=== PATIENT | male | born 1990 | race Caucasian/White ===

== ENCOUNTER 2017-11-23 19:30 | Inpatient (IN) ==
[2017-11-23] MEDS ORDERED: Tetanus/Diphtheria Toxoid Adult Vaccine Inj 0.5 ML Vial IM ONE (20:06)
--- NOTE | 2017-11-23 20:06 | ED ---
HPI General Chief Complaint: Extremity Injury, Lower Stated Complaint: Left ankle injury Time Seen by Provider: 11/23/17 19:49 Source: patient and EMS Mode of arrival: EMS Limitations: no limitations History of Present Illness HPI Narrative: 27-year-old white male presents emergency department by EMS with complaints of left ankle pain. Patient had his left ankle rolled up on by a pallet steve. He states that he inverted his ankle significantly. Patient states that he did not hear or feel a crack or pop. He has had significant discomfort since injury. He was given 4 mg of morphine IV by EMS. Pain currently is mild. Worse with weightbearing. No alleviating factors other than morphine. Patient denies any numbness, tingling. No neck or back injury. No pain in the foot, knee or hip. Related Data Previous Rx's Medication Instructions Recorded oxycodone-acetaminophen [Percocet] 1 tab PO Q6H #12 tab 11/23/17 Allergies Allergy/AdvReac Type Severity Reaction Status Date / Time No Known Allergies Allergy Unverified 11/23/17 19:56 Review of Systems ROS: all other systems reviewed are negative [facility] Medical History Medical History Patient denies medical problems (Acute) Surgical History Surgical History No history of previous surgery (Acute) Social History Social History Substance History: Active Abuse Smoking Status: Current every day smoker Tobacco Type: Cigarettes How Often Do You Have a Drink Containing Alcohol: Monthly or less Recent Travel in [facility] within the Last 8 Weeks: No Recent Out of Country Travel within the Last 8 Weeks: No Substance Abuse Detail Marijuana: Substance Use Status: Active Immunization History Tetanus Immunization: Unsure Hx Influenza Vaccine This Season: No Exam Narrative Exam Narrative: GENERAL: Well-developed, well-nourished in no apparent distress. Nontoxic appearing. HEAD: Normocephalic, atraumatic. EYES: Pupils equal round and reactive. Extraocular motions intact. No scleral icterus. No injection or drainage. ENT: Nose clear. Throat without erythema, tonsillar hypertrophy or exudate. Uvula midline. Airway patent. NECK: Trachea midline. Supple, nontender, moves head freely. No central bony tenderness or spasm. CARDIOVASCULAR: Regular rate and rhythm without murmurs, gallops, or rubs. RESPIRATORY: Clear to auscultation. Breath sounds equal bilaterally. No wheezes , rales, or rhonchi. GASTROINTESTINAL: Abdomen soft, non-tender, nondistended. No hepato-splenomegaly , or palpable masses. No guarding. EXTREMITIES: Examination of the left lower extremity reveals a splint in place which has been removed. He has significant swelling of both the medial lateral aspects of the ankle with overlying superficial abrasions both medially and laterally but there is no penetrating laceration. Patient complains of pain on both the medial lateral components of the ankle. No gross instability. No pain in the heel, Achilles, forefoot or toes. No pain in the knee. No pain over the proximal fibula. No pain in the hip. The right lower extremity as well as upper extremities are unremarkable for acute bony tenderness or deformity. Neurovascular intact. BACK: Nontender without deformity. No flank tenderness. NEUROLOGICAL: Awake, alert and oriented x 3 .Cranial nerves grossly intact. Motor and sensory grossly within normal limits. Normal speech. Course Initial Documented Vital Signs Temperature 99.6 F 11/23/17 19:46 Pulse Rate 63 11/23/17 19:46 Respiratory Rate 17 11/23/17 19:46 Blood Pressure 121/85 11/23/17 19:46 Pulse Oximetry 98 11/23/17 19:46 Last Documented Vital Signs Temperature 99.6 F 11/23/17 19:46 Pulse Rate 63 11/23/17 19:46 Respiratory Rate 17 11/23/17 19:46 Blood Pressure 121/85 11/23/17 19:46 Pulse Oximetry 98 11/23/17 19:46 Medical Decision Making MDM Narrative Medical decision making narrative: Will obtain x-ray of the left ankle. Tetanus immunization. Ice pack. X-ray reveals a medial malleolar fracture. Patient is placed in a posterior sugar tong splint and given crutches. The case has been discussed with Dr. 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 Case has been discussed with Dr. Louis who is accepted the admission. Medical Screen Exam Complete: Yes Emergency Medical Condition: Yes Differential Diagnosis Differential Diagnosis: MDM: High Differential diagnoses: Fracture, sprain, strain, dislocation, contusion, neurovascular injury Imaging Data Radiologist's impression: Ankle X-Ray 11/23/17 19:50 CONCLUSION: 1. Severe medial and lateral soft tissue swelling. 2. Minimally displaced fracture of the medial malleolus. 3. Intact distal fibula. Discharge Plan Discharge Disposition Patient Disposition: 30 Still Patient Discharge Condition Condition: Stable Discharge Order Discharge Orders: Discharge Order (Routine); Ordered 11/23/17 Ordered By: Thompson Angela Discharge Details Anticipated Discharge Date: 11/23/17 Diagnosis: Ankle fracture Physicians Team ED Provider: Shahzad Savage ED Midlevel Provider: Thompson Angela Primary Care Provider: Lacho Sandra V Attending Provider: Marylu Louis Status ED Status: Admitted Patient
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
[2017-11-23] MEDS ORDERED: Bisacodyl 10 MG Supp RECTAL PRN (21:28)
[2017-11-23] MEDS ORDERED: Acetaminophen 325 MG Tablet PO PRN (21:28)
[2017-11-23] MEDS ORDERED: Sodium Chloride 0.9% 2 ML Flush PRN IV.FLUSH (21:34)
--- NOTE | 2017-11-23 21:36 | CT ---
EXAM DATE: 11/23/2017 9:11 PM EDT AGE/SEX: 27 years / Male INDICATIONS: Fracture. CLINICAL DATA: This is the patient's initial encounter. Patient reports that signs and symptoms have been present for 1 day and indicates a pain score of 6/10. MEDICAL/SURGICAL HISTORY: None. None. RADIATION DOSE: 7.29 CTDI (mGy) COMPARISON: No prior exams available for comparison. TECHNIQUE: Multiple contiguous axial images were acquired using a multirow detector CT scanner witho ut contrast. Multiplanar reconstruction was performed in the sagittal and coronal planes. Using aut omated exposure control and adjustment of the mA and/or kV according to patient size, radiation dose was kept as low as reasonably achievable to obtain optimal diagnostic quality images. DICOM format i mage data is available electronically for review and comparison. FINDINGS: A fracture of the medial malleolus is again noted. The CT shows that the fracture is actually severel y comminuted. There is slight depression of some of the comminuted fracture fragments which results i n some step-off of the articular surface of the 2.3 mm, for example series 601 image 37. The larger f racture fragments are minimally displaced. Laterally, there is a sliver-like avulsion fracture fragment of the talus which involves the distal a ttachment of the anterior talofibular ligament no fibular fracture is demonstrated. No subluxation. The calcaneus is intact. CONCLUSION: 1. Comminuted fracture of the medial malleolus with mild depression of some of the small comminuted fracture fragments but otherwise minimally displaced. 2. Sprain with tiny distal avulsion fracture fragment of the anterior talofibular ligament. 3. No subluxations. Electronically signed by: Neptali Ramon MD 11/23/2017 9:35 PM EDT
[2017-11-23] MEDS: Morphine Inj 4 MG/ML Vial IV.PUSH PRN (21:39)
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
[2017-11-23] MEDS ORDERED: Chlorhexidine Gluconate 2% 1 Pack (2 Cloths) TOPICAL ONE (22:29)
[2017-11-23] MEDS ORDERED: Sodium Chlor 0.9% Inj 500 ML IV.SIG SCH (23:00)
[2017-11-23 23:03] LABS: Baso # (Auto) 0.1 th/mm3 (0.0-0.2); Baso % (Auto) 1.3 % (0.0-2.0); Eos # (Auto) 0.5 th/mm3 (0.0-0.4); Eos % (Auto) 5.3 % (0.0-4.0); Hematocrit 32.6 % (39.0-51.0); Hemoglobin 11.5 gm/dL (13.0-17.0); Lymph # (Auto) 2.7 th/mm3 (1.0-4.8); Lymph % (Auto) 26.8 % (9.0-44.0); Mean Corpuscular HGB Conc 35.4 % (32.0-36.0); Mean Corpuscular Hemoglobin 30.5 pg (27.0-34.0); Mean Corpuscular Volume 86.2 fL (80.0-100.0); Mean Platelet Volume 7.4 fL (7.0-11.0); Mono # (Auto) 0.8 th/mm3 (0.0-0.9); Mono % (Auto) 8.5 % (0.0-8.0); Neut # (Auto) 5.8 th/mm3 (1.8-7.7); Neut % (Auto) 58.1 % (16.0-70.0); Platelet Count 198 th/mm3 (150-450); Red Blood Count 3.79 mil/mm3 (4.50-5.90); Red Cell Distribution Width 12.6 % (11.6-17.2)
[2017-11-23 23:15] LABS: Activated Partial Thrombo Time 25.9 sec (24.3-30.1); Prothrombin Time 10.1 sec (9.8-11.6)
[2017-11-23 23:16] LABS: Anion Gap 11 meq/L (5-15); Blood Urea Nitrogen 11 mg/dL (7-18); Calcium 8.2 mg/dL (8.5-10.1); Carbon Dioxide 27.5 meq/L (21.0-32.0); Chloride 106 meq/L (98-107); Glomerular Filtration Rate Greater Than 89 mL/min (>89); Glucose,Random 95 mg/dL (74-106); Potassium 3.7 meq/L (3.5-5.1); Sodium 144 meq/L (136-145)
[2017-11-23] MEDS: Sod Chloride 0.9% Inj 1,000 ML IV.CONT SCH (23:34)
[2017-11-24 01:22] LABS: Eosinophils 5 % (0-4); Lymphocytes 19 % (9-44); Metamyelocytes 1 % (0-1); Monocytes 8 % (0-8); Myelocytes 1 % (0-0); Platelet Estimate Normal (Normal)
[2017-11-24 01:23] LABS: Platelet Morphology Normal (Normal); RBC Morphology Normal (Normal)
[2017-11-24] MEDS: Morphine Inj 4 MG/ML Vial IV.PUSH PRN ×5 (02:05→22:19)
[2017-11-24] MEDS: Sod Chloride 0.9% Inj 1,000 ML IV.CONT SCH ×3 (06:20→22:32)
[2017-11-24 07:58] LABS: Baso % (Auto) 0.4 % (0.0-2.0); Eos # (Auto) 0.1 th/mm3 (0.0-0.4); Eos % (Auto) 1.3 % (0.0-4.0); Hematocrit 42.1 % (39.0-51.0); Hemoglobin 14.3 gm/dL (13.0-17.0); Lymph # (Auto) 2.4 th/mm3 (1.0-4.8); Lymph % (Auto) 22.1 % (9.0-44.0); Mean Corpuscular HGB Conc 33.9 % (32.0-36.0); Mean Corpuscular Hemoglobin 32.5 pg (27.0-34.0); Mean Corpuscular Volume 95.9 fL (80.0-100.0); Mean Platelet Volume 8.5 fL (7.0-11.0); Mono # (Auto) 1.1 th/mm3 (0.0-0.9); Mono % (Auto) 9.9 % (0.0-8.0); Neut # (Auto) 7.2 th/mm3 (1.8-7.7); Neut % (Auto) 66.3 % (16.0-70.0); Platelet Count 176 th/mm3 (150-450); Red Blood Count 4.39 mil/mm3 (4.50-5.90); Red Cell Distribution Width 13.5 % (11.6-17.2); White Blood Count 10.9 th/mm3 (4.0-11.0)
[2017-11-24 08:15] LABS: Anion Gap 8 meq/L (5-15); Calcium 8.4 mg/dL (8.5-10.1); Carbon Dioxide 26.5 meq/L (21.0-32.0); Chloride 108 meq/L (98-107); Glomerular Filtration Rate Greater Than 89 mL/min (>89); Glucose,Random 83 mg/dL (74-106); Potassium 3.8 meq/L (3.5-5.1); Sodium 142 meq/L (136-145)
[2017-11-24 08:21] LABS: Blood Urea Nitrogen 11 mg/dL (7-18)
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
[2017-11-24] MEDS ORDERED: Influenza (Quadrivalent) Vaccine 0.5 ML Syringe IM ONE (09:00)
[2017-11-24] MEDS: Sodium Chloride 0.9% 2 ML Flush BID IV.FLUSH SCH ×2 (10:22→20:31)
[2017-11-24] MEDS ORDERED: Bupivacaine PF 0.5% Inj 30 ML Vial ONE (12:30)
[2017-11-24] MEDS ORDERED: Lidocaine PF 1% Inj 5 ML Syringe OTHER ONE (13:11)
--- NOTE | 2017-11-24 13:21 | P.CON ---
History of Present Illness Service: Foot and ankle surgery/podiatry Consult date: 11/24/17 Reason for Consult: Left ankle fracture Primary Care Provider: Lacho Sandra MD Chief Complaint: Left ankle pain History of Present Illness: Foot and ankle surgery/podiatry consulted for this 27-year-old he states there was obvious significant deformity but he did not feel a crack or a pop. male who presented to the emergency department last night with complaints of left ankle pain. Patient states he rolled his left ankle on a pallet steve. He reports significant pain since injury and was given 4 mg of morphine IV by EMS. Pain is well controlled with current pain medication regimen. Patient denies any numbness tingling burning to the left lower extremity. Review of Systems Constitutional: Denies chills, Denies fever(s), Denies headache(s), Denies night sweats Cardiovascular: Denies chest pain Respiratory: Denies cough Musculoskeletal: Reports joint pain Comments: Left ankle pain reported PMFSH - History History Provided By: Patient - Medical History Medical History: Medical History (Last Reviewed 11/24/17 @ 13:19 by Loyda Land DPM) History of broken nose Patient denies medical problems - Surgical History Surgical History: Surgical History (Last Reviewed 11/24/17 @ 13:19 by Loyda Land DPM) No history of previous surgery - Family History Family History: Family History (Last Reviewed 11/24/17 @ 13:19 by Loyda Land DPM) Other Coronary artery disease Diabetes mellitus - Tobacco History Second Hand Smoke Exposure: No Tobacco Use In Past 30 Days: Yes Smoking Status: Current every day smoker Tobacco Type: Cigarettes - Alcohol History How Often Do You Have a Drink Containing Alcohol: Monthly or less - Substance Use History Substance History: Active Abuse - Substance Use Type Marijuana Type: marijuana Status: Active Route Used: Inhalation Last Used: 11/22/2017 Reason for Use: Calm Down - Travel History Recent Travel in the [place] Within the Last 8 Weeks: No Recent Travel Out of the Country Within the Last 8 Weeks: No - Immunization History Tetanus Immunization: Unsure Hx Influenza Vaccine This Season: No Medications and Allergies Active Medications: Active Medications Acetaminophen (Tylenol) 650 mg PO Q4H PRN PRN Reason: Temp > 100.4 Bisacodyl (Dulcolax Supp) 10 mg RECTAL DAILY PRN PRN Reason: SEVERE CONSITIPATION Sodium Chloride (Ns Inj) 1,000 mls @ 125 mls/hr IV.CONT .Q8H [facility] Last Infusion: 11/24/17 07:34 Dose: Infused Lactated Ringer's (Lr 1000 Ml Inj) 1,000 mls @ 30 mls/hr IV.SIG .Q24H [facility] Stop: 11/24/17 22:29 Sodium Chloride (Ns Inj) 500 mls @ 30 mls/hr IV.SIG .Q10H [facility] Last Admin: 11/23/17 23:35 Dose: Not Given Morphine Sulfate (Morphine Inj) 4 mg IV.PUSH Q4H PRN PRN Reason: pain > 4 Last Admin: 11/24/17 09:55 Dose: 4 mg Ondansetron HCl (Zofran Inj) 4 mg IV.PUSH Q6H PRN PRN Reason: NAUSEA OR VOMITING Sennosides (Senokot) 17.2 mg PO Q12H PRN PRN Reason: Moderate Constipation Sodium Chloride (Ns Flush) 2 ml IV.FLUSH BID [facility] Last Admin: 11/24/17 10:22 Dose: 2 ml Sodium Chloride (Ns Flush) 2 ml IV.FLUSH PRN PRN PRN Reason: FLUSH AFTER USING IV ACCESS Allergies Allergy/AdvReac Type Severity Reaction Status Date / Time No Known Allergies Allergy Unverified 11/23/17 19:56 Physical Exam Vital signs: Vital Signs 11/23/17 19:46 11/23/17 21:37 11/23/17 22:12 Temperature 99.6 F 97.3 F L Pulse Rate 63 72 62 Respiratory Rate 17 16 17 Blood Pressure 121/85 137/80 110/53 L Pulse Oximetry 98 98 99 11/24/17 00:00 11/24/17 03:16 11/24/17 03:34 Temperature 98.0 F 98.4 F Pulse Rate 67 64 Respiratory Rate 18 16 18 Blood Pressure 137/95 H 121/64 Pulse Oximetry 97 97 11/24/17 06:29 11/24/17 08:00 11/24/17 12:00 Temperature 98.3 F 97.9 F Pulse Rate 62 52 L Respiratory Rate 16 20 20 Blood Pressure 121/58 L 130/61 Pulse Oximetry 97 97 Intake & Output 11/23/17 11/24/1718 18:59 06:59 18:59 Intake Total 480 / 480 1000 / 1000 Balance 480 / 480 1000 / 1000 Weight 93.4 kg Intake: IV 1000 / 1000 NS Inj 1,000 ML @ 125 mls/hr IV 1000 / 1000 .CONT .Q8H [facility] Rx#:[id number] Oral 480 / 480 Other: # Voids 0 Date of Last Bowel Movement 11/23/17 11/23/17 # Bowel Movements 0 Narrative: GENERAL: This is a well-nourished, well-developed patient, in no apparent distress. SKIN: Intact with superficial abrasions noted to medial lateral ankle HEAD: Atraumatic. EYES: Pupils equal round and reactive. ENT: Airway patent. NECK: Trachea midline. RESPIRATORY: Nonlabored breathing. MUSCULOSKELETAL:. Negative Homans sign bilaterally. NEUROLOGICAL: Awake and alert. Normal speech. Lower extremity physical exam: Vascular: Dorsalis pedis 2/4, posterior tibial 2/4. Capillary refill time within normal limits to digits X5 bilateral foot. Edema mildly present to left ankle Neuro: Gross sensation intact to bilateral lower extremity. Pinpoint sensation intact. No hyperalgesia noted to bilateral lower extremity Dermatology: Normal temperature and turgor to bilateral lower extremity. Superficial abrasion noted to medial ankle not an area of planned incision. Musculoskeletal: Tender to palpation to medial lateral left ankle. Assessment and Plan - Plan 27-year-old male status post left ankle fracture X-rays and CT reviewed Patient 2 OR for open reduction internal fixation of left ankle fracture She has been n.p.o. after midnight Left lower extremity marked Patient evaluated with family present Patient and family understand all risks benefits alternatives and complications associated with surgical intervention He will remain nonweightbearing to the left lower extremity
[2017-11-24] MEDS ORDERED: Bupivacaine PF 0.25% Inj 30 ML Vial ONE (13:38)
--- NOTE | 2017-11-24 15:21 | XR ---
EXAM DATE: 11/24/2017 12:00 AM EDT AGE/SEX: 27 years / Male INDICATIONS: ORIF left ankle fracture. CLINICAL DATA: This is the patient's subsequent encounter. Patient reports that signs and symptoms h ave been present for 2 days and indicates a pain score of Nonresponsive. MEDICAL/SURGICAL HISTORY: Non-responsive. Non-responsive. COMPARISON: C, ANKLE COMPLETE LEFT MIN 3V, 11/23/2017. . FINDINGS: Multiple coned-down views of the left ankle were obtained and demonstrate interval placement of a lag -type screw transfixing the medial malleolar fracture. There is a screw plate fixation device noted i n this region as well. The fracture fragments are in anatomic alignment. The ankle mortise is congrue nt. There is soft tissue swelling. CONCLUSION: Status post open rigid internal fixation. Electronically signed by: Rickey Barr MD 11/24/2017 3:20 PM EDT
--- NOTE | 2017-11-24 15:32 | P.PCN ---
Date of procedure: 11/24/17 Pre-op diagnosis: Left ankle fracture - medial malleolus Post-op diagnosis: same Procedure: Left ankle open reduction internal fixation Anesthesia: GETA Surgeon: Loyda Land Estimated blood loss (mL): 10 Pathology: none sent Condition: stable Disposition: PACU (with VSS and NVS intact)
[2017-11-24] MEDS ORDERED: fentaNYL Citrate Inj 100 MCG/2 ML Ampul ONE (15:33)
[2017-11-24] MEDS ORDERED: *Meperidine Inj 25 MG/ML Vial PERIprocedural Use ONLY ONE (15:34)
[2017-11-24] MEDS ORDERED: Post-op Orders (for Pharmacy) OTHER STA (15:34)
[2017-11-25] MEDS: Sod Chloride 0.9% Inj 1,000 ML IV.CONT SCH ×2 (03:15→06:06)
[2017-11-25] MEDS: Morphine Inj 4 MG/ML Vial IV.PUSH PRN ×3 (03:15→12:00)
--- NOTE | 2017-11-25 08:55 | P.DCO ---
- Physical Therapy Order: Evaluate and treat - Home Health Nursing Order: Nursing assessment with vital signs - Case Management Consult Yes - Certification I have seen patient Bharath García on 11/25/17. My clinical findings support the need for the requested home health care services because: ANKLE FRACTURE, NON WEIGHTBEARING STATUS. Limited ability to care for self, High risk of falls I certify that my clinical findings support that this patient is homebound because: Unsteady gait/balance
[2017-11-25] MEDS ORDERED: Enoxaparin Inj 40 MG/0.4 ML Syringe SQ SCH (09:00)
[2017-11-25] MEDS: Sodium Chloride 0.9% 2 ML Flush BID IV.FLUSH SCH (09:11)
[2017-11-25 12:19] VITALS: BP 130/52; PULSE 60; RESP 18; TEMP 97.9; O2SAT 96
--- NOTE | 2017-11-25 12:21 | P.PN ---
Subjective Interval history: Follow up for ankle fracture, S/P Left ankle open reduction internal fixation -patient slept well, no nausea, no vomiting. Tolerating diet well. Pain well controlled. No fever. No chest pain, no shortness of breath. Physical Exam Vital signs: Vital Signs 11/24/17 15:22 11/24/17 15:30 11/24/17 15:45 Temperature 97.6 F Pulse Rate 62 68 71 Respiratory Rate 18 18 18 Blood Pressure 111/53 L 121/59 L 137/63 Pulse Oximetry 98 98 97 11/24/17 16:00 11/24/17 20:00 11/25/17 00:00 Temperature 97.9 F 98.3 F 98 F Pulse Rate 69 72 66 Respiratory Rate 20 18 16 Blood Pressure 125/60 119/59 L 123/61 Pulse Oximetry 100 95 95 11/25/17 04:00 11/25/17 08:00 Temperature 97.8 F 97.4 F L Pulse Rate 57 L 64 Respiratory Rate 18 16 Blood Pressure 131/65 115/56 L Pulse Oximetry 99 98 Intake & Output 11/24/17 11/25/17 11/25/17 18:59 06:59 18:59 Intake Total 2200 / 2200 360 / 360 Output Total 413 / 413 1300 / 1300 Balance 1787 / 1787 -940 / -940 Weight 93.4 kg Intake: IV 1000 / 1000 NS Inj 1,000 ML @ 125 mls/hr IV 1000 / [address] [facility] Rx#:[id number] Oral 360 / 360 Anesthesia Amount 1200 / 1200 Output: Urine 403 / 403 1300 / 1300 Estimated Blood Loss Other: Date of Last Bowel Movement 11/23/17 11/23/17 11/23/17 Narrative: GENERAL: This is a well-nourished, well-developed patient, in no apparent distress. SKIN: Warm and dry HEAD: Atraumatic. EYES: Pupils equal round and reactive. ENT: Airway patent. NECK: Trachea midline. RESPIRATORY: Nonlabored breathing. MUSCULOSKELETAL:. Left lower extremity in dressing, intact. Intact sensation to left foot, left pedal pulse 2+. No other joint abnormality. NEUROLOGICAL: Awake and alert. Normal speech. Results - Labs CBC & Chem 7: 11/24/17 06:25 11/24/17 06:25 - Imaging Impressions Ankle X-Ray 11/24/17 00:00 CONCLUSION: Status post open rigid internal fixation. - Procedures Left ankle ORIF, November 24, 2017 Assessment and Plan - Assessment (1) Ankle fracture Code(s): S82.899A - Other fracture of unspecified lower leg, initial encounter for closed fracture Status: Acute - Plan 27-year-old male with no significant past medical history presented to the emergency department for evaluation of left ankle pain. Patient reported left foot was run over by karthikeyan wilson. Endorsed 8/10 left ankle pain. X-ray of the left ankle significant for minimally displaced fracture of the medial malleolus. Left medial malleolar fracture Status post ORIF left ankle November 24, 2017 -Podiatry consulted, appreciate assistance. -Postop care Postop pain management -PT eval Case management consultation to assist with discharge planning. DME has been ordered Patient stable for discharge, case management to arrange home health care if indicated per PT evaluation Follow-up with podiatry in 2 weeks Regular diet Nonweightbearing left leg [email or web address] Prescription Drug Monitoring Database has been queried and verified prior to prescribing the controlled subsection. Patient is having significant pain caused by [left ankle fracture and subsequent ORIF] which will last more than 3 days. Trial of alternative treatment options other than prescribed opioids has not helped. I believe that it is medically necessary to treat the patients pain because it is affecting patients ability to [ambulate]. Code Status: Full code Discussed Condition With: RN, patient, case management Discharge Planning: Discharge home today after cleared by orthopedic (1) Ankle fracture Qualifiers: Encounter type: initial encounter Fracture type: closed Laterality: left Qualified Code(s): S82.892A - Other fracture of left lower leg, initial encounter for closed fracture
--- NOTE | 2017-11-28 18:45 | P.DS ---
Date of admission: 11/23/17 20:46 Primary care physician: Lacho Sandra MD Attending physician on discharge: Melissa Servin Anticipated date of discharge: 11/25/17 Brief History from admission: 27-year-old male with no significant past medical history presents to the emergency department for evaluation of left ankle pain. The patient reports he was at work when his left foot was run over by a pallet steve. He reports falling to the floor however denies any head trauma or loss of consciousness. Endorses 8/10 left ankle pain. X-ray of the left ankle significant for minimally displaced fracture of the medial malleolus. DS: Diagnosis - Discharge Diagnosis (1) Ankle fracture Status: Acute DS: Medications - Discharge Medications Prescriptions: enoxaparin [Lovenox] 40 mg SUBCUT DAILY #21 ml hydrocodone-acetaminophen 1 tab PO Q6H PRN #28 tab PRN Reason: pain 7-10 DS: Summary Hospital Course: 27-year-old male with no significant past medical history presented to the emergency department for evaluation of left ankle pain. Patient reported left foot was run over by pallet steve. Endorsed 8/10 left ankle pain. X-ray of the left ankle significant for minimally displaced fracture of the medial malleolus. Pt. admitted for Left medial malleolar fracture. Podiatry consulted. Had ORIF left ankle November 24, 2017 Postop course uneventful. CM consult for dc planning. Pt. cleared for dc Discharged home in stable condition - Time Spent with Patient Total time spent providing and/or coordinating discharge services: Less than 30 minutes - Quality: VTE Deep Vein Thrombosis/Pulmonary Embolism Present on Admission: No Results Procedures completed during hospitalization: Left ankle ORIF, November 24, 2017 - Impressions ITS Impressions Ankle CT 11/23/17 00:00 CONCLUSION: 1. Comminuted fracture of the medial malleolus with mild depression of some of the small comminuted fracture fragments but otherwise minimally displaced. 2. Sprain with tiny distal avulsion fracture fragment of the anterior talofibular ligament. 3. No subluxations. Ankle X-Ray 11/24/17 00:00 CONCLUSION: Status post open rigid internal fixation. Discharge Plan - Discharge Disposition Patient Disposition: /Home Health Service - Discharge Condition Condition: Stable - Discharge Order Discharge Orders: Discharge Order (Routine); Ordered 10/03/18 Ordered By: Thompson Angela - Discharge Details Anticipated Discharge Date: 11/25/17 Discharge Comment: dc when cleared by kermit willis - Physicians Team Primary Care Provider: Lacho Sandra V Attending Provider: Dany Grewal Other Providers: Norma Fry, ARTEMIO
== END 2017-11-25 15:44 | disposition home health service (06) ==
LOC: NEPD 19:30 → NEDA 20:46 → N06 21:59
PROVIDERS: ADMIT Hospitalist; ATTEND Hospitalist
PROC: ORIFANK (2017-11-24 13:11)